=== PATIENT | male | born 1980 | race Caucasian/White ===

== ENCOUNTER 2016-09-09 19:40 | Emergency (ER) | payer OTHER ==
--- NOTE | 2016-09-09 20:56 | ER Document Report ---
ED Medical Screen (RME) - General Chief Complaint: Nose Problem Stated Complaint: NOSE INJURY Time Seen by Provider: 09/09/16 20:55 Notes: Softball to the nose. Bilateral epistaxis that is currently hemostatic. Blood laceration to the nose. Face is stable. No vomiting, weakness, or numbness. No septal hematoma present. TRAVEL OUTSIDE OF THE [place] IN LAST 30 DAYS: No - Related Data Allergies/Adverse Reactions: amoxicillin Allergy (Verified 09/09/16 20:53) Past Medical History Renal/ Medical History: Denies: Hx Peritoneal Dialysis Physical Exam - Vital signs Vitals: Pulse Resp BP Pulse Ox 123 H 16 115/82 97 09/09/16 20:40 09/09/16 20:40 09/09/16 20:40 09/09/16 20:40 Course - Vital Signs Vital signs: Temp Pulse Resp BP Pulse Ox 123 H 16 115/82 97 09/09/16 20:40 09/09/16 20:40 09/09/16 20:40 09/09/16 20:40
[2016-09-09] MEDS ORDERED: MIDAZOLAM 2 MG/2 ML INJ IM ONE (22:31)
[2016-09-09] MEDS ORDERED: LIDOCAINE 1%/EPINEPHRINE INJ 20 ML VIAL INJ ONE (22:32)
[2016-09-09] MEDS ORDERED: LIDOCAINE 4%/TETRACAINE 0.5%/EPI 0.18% 5 ML TOPICAL SOLN TOP ONE (22:32)
[2016-09-09] MEDS ORDERED: CEPHALEXIN 500 MG CAPSULE PO ONE (22:48)
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
[2016-09-10 00:37] VITALS: BP 128/65
== END 2016-09-10 00:36 | disposition home or self-care (01) ==
LOC: ER 19:40
PROC: 09QKXZZ Repair Nasal Mucosa and Soft Tissue, External Approach (ICD-10-PCS; principal; 2016-09-09)
DX: S02.2XXB Fracture of nasal bones, initial encounter for open fracture (principal); S01.21XA Laceration without foreign body of nose, initial encounter; W21.07XA Struck by softball, initial encounter; F17.200 Nicotine dependence, unspecified, uncomplicated
CPT/HCPCS: 99283; 70150; 12013; J3490 ×2

== ENCOUNTER 2016-09-17 16:03 | Emergency (ER) | payer SELFPAY ==
[2016-09-17 16:29] VITALS: BP 118/75
--- NOTE | 2016-09-17 16:33 | ER Document Report ---
ED Suture/Wound Recheck - General Chief Complaint: Suture Removal Stated Complaint: STICH REMOVAL Time Seen by Provider: 09/17/16 16:30 Notes: -year-old male presents to ED for suture removal to his nose. He states he was hit in the nose with a softball last week and came to the emergency room had sutures put in. He states he had a Dr. duenas and put the sutures in and leave right away TRAVEL OUTSIDE OF THE [place] IN LAST 30 DAYS: No - HPI Previous ED treatment: Laceration repair Quality of pain: No pain Severity: None Pain Level: Denies Context: Injury Symptoms since procedure: No complaints Exacerbated by: Denies Relieved by: Denies - Related Data Allergies/Adverse Reactions: amoxicillin Allergy (Verified 09/09/16 20:53) Tetanus Vaccines and Toxoid Allergy (Verified 09/09/16 23:40) Past Medical History - General Information source: Patient - Social History Smoking Status: Current Every Day Smoker Cigarette use (# per day): Yes - Pack per day Chew tobacco use (# tins/day): No Smoking Education Provided: Yes - <2 minutes Frequency of alcohol use: Rare Drug Abuse: None Occupation: None Lives with: Friend Family History: Arthritis, DM, Hypertension, Malignancy Patient has suicidal ideation: No Patient has homicidal ideation: No - Past Medical History Cardiac Medical History: Reports: None Pulmonary Medical History: Reports: None EENT Medical History: Reports: None Neurological Medical History: Reports: None Endocrine Medical History: Reports: None Renal/ Medical History: Reports: None Malignancy Medical History: Reports None GI Medical History: Reports: None Musculoskeltal Medical History: Reports None Skin Medical History: Reports None Psychiatric Medical History: Reports: None Traumatic Medical History: Reports: None Infectious Medical History: Reports: None Surgical Hx: Negative Past Surgical History: Reports: None - Immunizations Hx Diphtheria, Pertussis, Tetanus Vaccination: No Review of Systems - Review of Systems Constitutional: No symptoms reported EENT: No symptoms reported Cardiovascular: No symptoms reported Respiratory: No symptoms reported Gastrointestinal: No symptoms reported Genitourinary: No symptoms reported Male Genitourinary: No symptoms reported Musculoskeletal: No symptoms reported Skin: Other - Suture removal site healing well no open areas no redness no swelling no complaint of pain Hematologic/Lymphatic: No symptoms reported Neurological/Psychological: No symptoms reported Physical Exam - Vital signs Vitals: Temp Pulse Resp BP Pulse Ox 98 F 122 H 16 118/75 97 09/17/16 16:18 09/17/16 16:18 09/17/16 16:18 09/17/16 16:18 09/17/16 16:18 Interpretation: Normal - General General appearance: Appears well, Alert - HEENT Head: Normocephalic, Atraumatic Eyes: Normal Pupils: PERRL - Respiratory Respiratory status: No respiratory distress Chest status: Nontender Breath sounds: Normal Chest palpation: Normal - Cardiovascular Rhythm: Regular Heart sounds: Normal auscultation Murmur: No - Abdominal Inspection: Normal Distension: No distension Bowel sounds: Normal Tenderness: Nontender Organomegaly: No organomegaly - Back Back: Normal, Nontender - Extremities General upper extremity: Normal inspection, Nontender, Normal color, Normal ROM , Normal temperature General lower extremity: Normal inspection, Nontender, Normal color, Normal ROM , Normal temperature, Normal weight bearing. No: Melodie's sign - Neurological Neuro grossly intact: Yes Cognition: Normal Orientation: AAOx4 Basilio Coma Scale Eye Opening: Spontaneous [place] Coma Scale Verbal: Oriented [place] Coma Scale Motor: Obeys Commands Basilio Coma Scale Total: 15 Speech: Normal Motor strength normal: LUE, RUE, LLE, RLE Sensory: Normal - Psychological Associated symptoms: Normal affect, Normal mood - Skin Skin Temperature: Warm Skin Moisture: Dry Skin Color: Normal Location of irregularity: Face - Suture removal, site healing well, no open areas, no redness, no swelling, and no complaint of pain Course - Re-evaluation Re-evalutation: 09/17/16 16:37 Sutures removed from nose. Patient tolerated well. No redness no inflammation no complaint of pain. - Vital Signs Vital signs: Temp Pulse Resp BP Pulse Ox 98 F 122 H 16 118/75 97 09/17/16 16:18 09/17/16 16:18 09/17/16 16:18 09/17/16 16:18 09/17/16 16:18 Discharge - Discharge Clinical Impression: Visit for suture removal Condition: Stable Disposition: HOME, SELF-CARE Instructions: Suture Removal, Family Physicians / Practices Additional Instructions: SOAP CLEANSING: Gently wash the wound daily using a mild soap (like Ivory, Phisoderm, Neutrogena). Use warm water, rubbing gently until all debris, ooze, and crusting have been washed from the wound. Allow to dry briefly (about 10 minutes) after cleaning. Repeat this cleansing at least three times a day for the first two days and then once or twice a day. ANTIBIOTIC OINTMENT PROTECTION: Your wounds are such that dressing them is not practical or optional. After cleansing, you should apply a thin coating of antibiotic ointment ( Bacitracin, not Neosporin) to the wounds at least three times daily. This lessens infection risk, and may decrease the amount of scarring. Use a q-tip or dull butter knife, not your finger, to apply this ointment. Any debris or ooze which builds up in the ointment should be gently rubbed off with a sterile gauze pad. Harder crusting may need to be gently scrubbed off with a clean wash cloth with soap and warm water, perhaps applying a warm, wet wash cloth to the wound for ten minutes first. Development of redness, severe itching, or blistering may mean allergy to the ointment. See the doctor. FOLLOW-UP CARE: If you have been referred to a physician for follow-up care, call the physician s office for an appointment as you were instructed or within the next two days. If you experience worsening or a significant change in your symptoms, notify the physician immediately or return to the Emergency Department at any time for re-evaluation. Forms: Smoking Cessation Education
== END 2016-09-17 16:33 | disposition home or self-care (01) ==
LOC: ER 16:03
DX: Z48.02 Encounter for removal of sutures (principal); F17.210 Nicotine dependence, cigarettes, uncomplicated